=== PATIENT | female | born 1965 | race Caucasian/White ===

== ENCOUNTER → 2017-05-02 | Outpatient (CLI) | payer BC ==
[~2017-05-02] MED LIST: Atarax,Vistaril PO; Coumadin,Jantoven PO; Imitrex PO; Percocet 5/325,Endoc PO; Toprol XL PO; Triphasil-28,Trivora PO; Zocor PO
== END | disposition home or self-care (01) ==
LOC: RAD 13:25
PROC: 3E0R3KZ Introduction of Other Diagnostic Substance into Spinal Canal, Percutaneous Approach (ICD-10-PCS; principal; 2017-05-02)
DX: M48.061 Spinal stenosis, lumbar region without neurogenic claudication (principal); M51.27 Other intervertebral disc displacement, lumbosacral region; M51.36 Other intervertebral disc degeneration, lumbar region; M46.96 Unspecified inflammatory spondylopathy, lumbar region; Z98.890 Other specified postprocedural states
CPT/HCPCS: 62304; 72132

== ENCOUNTER 2017-11-26 21:45 | Inpatient (IN) | payer OTHER ==
[~2017-11-26] VITALS: Ht 172.7 cm; Wt 94.1 kg
[~2017-11-26 21:45] MED LIST changes: +NEURONTIN600 MG PO; +TOPROL XL100 MG PO; +ZOCOR80 MG PO
[2017-11-27 07:10] VITALS: BP 141/58
[2017-11-27 11:36] VITALS: BP 130/62
[2017-11-27 13:42] VITALS: BP 98/55
[2017-11-27 15:48] VITALS: BP 100/58
[2017-11-27 20:05] VITALS: BP 105/54
[2017-11-28] VITALS: BP 108/54
[2017-11-28 00:10] VITALS: BP 108/54
[2017-11-28 04:00] VITALS: BP 92/59
[2017-11-28 07:59] VITALS: BP 99/53
[2017-11-28] MEDS ORDERED: ENDOCET 5-3251 EACH PO (08:59)
[2017-11-28] MEDS ORDERED: ELIQUIS2.5 MG PO (08:59)
[2017-11-28 09:00] LABS: MCV 98.8 FL (83-99)
[2017-11-28 09:05] LABS: HEMOGLOBIN 10.9 G/DL (11.9-15.5)
[2017-11-28 09:30] LABS: CHLORIDE 105 MEQ/L (99-109); CREATININE 0.6 MG/DL (0.6-1.3); GFR ESTIMATE (CALCULATED) > 59 mL/min/; GLUCOSE 135 mg/dL (70-99); SODIUM 140 MEQ/L (136-147); UREA NITROGEN (BUN) 10 mg/dL (9-23)
[2017-11-28 12:03] VITALS: BP 98/57
== END 2017-11-28 13:40 | disposition home or self-care (01) | DRG 470 ==
LOC: ENRESERV 21:45 → 2SOUTH 11-27 05:39 → 3WEST 11-27 11:19
PROVIDERS: Physician Assistant
PROC: 0SRC0J9 Replacement of Right Knee Joint with Synthetic Substitute, Cemented, Open Approach (ICD-10-PCS; principal; 2017-11-27)
PROC: 3E0T3BZ Introduction of Anesthetic Agent into Peripheral Nerves and Plexi, Percutaneous Approach (ICD-10-PCS; 2017-11-27)
DX: M17.11 Unilateral primary osteoarthritis, right knee (principal); J44.9 Chronic obstructive pulmonary disease, unspecified; E78.5 Hyperlipidemia, unspecified; I10 Essential (primary) hypertension; G89.29 Other chronic pain; M54.5 Low back pain; E78.00 Pure hypercholesterolemia, unspecified; F41.9 Anxiety disorder, unspecified; L30.9 Dermatitis, unspecified; F17.210 Nicotine dependence, cigarettes, uncomplicated; Z96.652 Presence of left artificial knee joint; Z98.1 Arthrodesis status
CPT/HCPCS: 80048; 85014; 85018; C1713; J0330; J0690; J1100; J1885; J2250; J2405; J2710; J2795; J7050; J7120; J7643; S0020